=== PATIENT | female | born 1955 | race Caucasian/White ===

== ENCOUNTER → 2016-10-25 | Outpatient (CLI) | payer MEDICARE ==
[2014-11-02 11:05] VITALS: BP 128/72
[~2016-10-25] MED LIST: BUPR100T8 PO; GADOBUTROL 7.5 MMOL/7.5 ML VIAL IV ONE; LORA0.5T PO; THYR60TA PO; TRAZ100T12 PO; VANC125S PO
--- NOTE | 2016-10-25 14:00 | KCIC ---
EXAM: Bone densitometry. HISTORY: Postmenopausal female presents for osteoporosis screening. FINDINGS: BMD: (g/cm2) - AP Spine Total (L1-L4): 1.012 - Total left Hip: 0.785 T-Score: - AP Spine Total (L1-L4): -0.3 - Total left Hip: -1.3 Z-Score: - AP Spine Total (L1-L4): 1.3 - Total left Hip: -0.1 World Health Organization criteria for BMD interpretation classify patients as Normal (T-score at or above -1.0), Osteopenic (T-score between -1.0 and -2.5), or Osteoporotic (T-score at or below -2.5). IMPRESSION: 1. Osteopenia measured at the left hip. 2. Normal bone mineral density measured at the lumbar spine. Electronically signed by: Ramona Herbert (Oct 25, 2016 13:58:58)
--- NOTE | 2016-10-25 15:51 | KCIC ---
PROCEDURE Thoracic and lumbar spine MRI with and without contrast. HISTORY Pain. TECHNIQUE Multiplanar and multi sequence magnetic resonance imaging of the thoracic and lumbar spine was performed prior to and following the administration of 7 cc Gadavist intravenous contrast. COMPARISON None. FINDINGS Thoracic spine: There are chronic mild superior endplate compression deformities with associated Schmorl's nodes at T3, T4, T5, and T7. No acute or subacute fracture is seen. There are multiple hemangiomas. There is no suspicious osseous lesion. There is degenerative endplate remodeling at multiple levels. No spinal cord lesion is seen. No abnormal enhancing lesion is seen. At T4-T5, there is a left paracentral to foraminal disc protrusion superimposed on a disc bulge and endplate remodeling. There is mild facet arthropathy. There is mild left foraminal stenosis. At T7-T8, there is a suspected left paracentral annular tear. There is mild right greater than left facet arthropathy. There is mild bilateral foraminal stenosis. At T8-T9, there is a right paracentral disc protrusion. There is mild facet arthropathy. There is moderate bilateral foraminal stenosis. At T12-L1, there is a diffuse disc bulge and endplate remodeling. There is no stenosis. There are additional minimal disc bulges and endplate remodeling throughout the thoracic spine. There are findings consistent with instrumented anterior spinal fusion at C4 through C7, incompletely evaluated on the current exam. There is a small simple appearing right renal cyst. Lumbar spine: There is minimal retrolisthesis of L1 on L2, L2 on L3, L3 on L4 and L5 on S1. There is degenerative endplate remodeling with disc space narrowing predominately at L4-L5 and L5-S1. There is a T2 hyperintense lesion with increased signal on inversion recovery images within L3, likely a large atypical hemangioma. No suspicious osseous lesion is seen. The conus terminates at L1. 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 No suspicious enhancing lesion is seen. At L1-L2, there is a shallow posterior central disc protrusion and annular tear superimposed on a right posterior lateral predominant disc bulge and endplate remodeling. There is mild facet arthropathy. There is mild right foraminal stenosis. At L2-L3, there is a disc bulge and endplate remodeling. There is mild facet arthropathy. There is no stenosis. At L3-L4, there is a posterior central annular tear superimposed on a disc bulge and endplate remodeling. There is mild facet arthropathy. There is no stenosis. At L4-L5, there is a left foraminal to lateral disc protrusion and osteophyte complex superimposed on a diffuse disc bulge and endplate osteophytosis. There is mild facet arthropathy. There is mild right and [id number]-itimpyia left foraminal stenosis. At L5-S1, there is a left foraminal to extra foraminal disc protrusion and annular tear superimposed on a disc bulge and endplate remodeling. There is mild left greater than right foraminal stenosis. IMPRESSION 1. Multilevel degenerative change within the thoracic and lumbar spine, described in detail above. This results in foraminal stenosis at the aforementioned levels. 2. Mild chronic superior endplate compression deformities with Schmorl's nodes at T3, T4, T5 and T7. No acute fracture is seen. 3. Multiple vertebral hemangiomas, the largest of which is seen within L3 and demonstrates signal characteristics suggesting an atypical hemangioma. No suspicious osseous lesion is seen. 4. Instrumented fusion and degenerative change involving the cervical spine, incompletely evaluated on the current exam. Electronically signed by: Ramona Herbert (Oct 25, 2016 15:50:38)
== END | disposition home or self-care (01) ==
LOC: KCIC DEXA 13:22
PROVIDERS: ATTEND Internal Medicine
DX: M81.8 Other osteoporosis without current pathological fracture (principal); Z78.0 Asymptomatic menopausal state; M85.88 Other specified disorders of bone density and structure, other site; M54.9 Dorsalgia, unspecified; Z86.79 Personal history of other diseases of the circulatory system
CPT/HCPCS: 72157; 72158; 77080; A9585

== ENCOUNTER → 2017-09-23 | Day surgery (SDC) | payer MEDICARE ==
[~2017-09-23] MED LIST changes: -BUPR100T8 PO; -GADOBUTROL 7.5 MMOL/7.5 ML VIAL IV ONE; -LORA0.5T PO; +PROPOFOL 40 ML IV; -THYR60TA PO; -TRAZ100T12 PO; -VANC125S PO
[2017-09-23] MEDS: IV RINGERS,LACTATED 1000ML 1,000 ML IV ×2 (08:48)
== END | disposition home or self-care (01) ==
LOC: SURG 08:07
DX: Z09 Encounter for follow-up examination after completed treatment for conditions other than malignant neoplasm (principal); K64.0 First degree hemorrhoids; E03.9 Hypothyroidism, unspecified; F17.200 Nicotine dependence, unspecified, uncomplicated; Z86.39 Personal history of other endocrine, nutritional and metabolic disease; Z86.69 Personal history of other diseases of the nervous system and sense organs; Z96.651 Presence of right artificial knee joint
CPT/HCPCS: 45378; J2704

== ENCOUNTER → 2017-10-07 | Outpatient (CLI) | payer MEDICARE ==
[2017-10-07] MEDS: SINCALIDE IV (10:48)
[2017-10-07] MEDS: NORMAL SALINE IV (10:48)
== END | disposition home or self-care (01) ==
LOC: US 07:19
DX: K83.8 Other specified diseases of biliary tract (principal)
CPT/HCPCS: 76705; 78226; 96374; 96375; A9537; J2805

== ENCOUNTER → 2017-10-26 | Outpatient (CLI) | payer MEDICARE | END | disposition home or self-care (01) | LOC: KCIC MRI 08:35 | DX: K83.8 Other specified diseases of biliary tract (principal); R10.13 Epigastric pain | CPT/HCPCS: 74181 ==

== ENCOUNTER 2017-11-13 11:18 | Emergency (ER) | payer MEDICARE ==
[2017-11-13 12:21] LABS: BILIRUBIN,URINE NEGATIVE (NEG); CLARITY,URINE CLEAR; GLUCOSE,URINE NEGATIVE (NEG); NITRITE,URINE NEGATIVE (NEG); PROTEIN,URINE NEGATIVE (NEG-TRACE); UROBILINOGEN,URINE 0.2 mg/dL (0.2 mg/dL)
[2017-11-13 12:26] LABS: ADD MAN DIFF? NO
[2017-11-13 12:34] LABS: BACTERIA,URINE FEW /HPF (0-FEW); COLOR,URINE STRAW; RBC,URINE OCC /HPF (0-2); SQUAMOUS EPITHELIAL CELL,UR FEW /LPF; WBC,URINE RARE /HPF (0-4)
[2017-11-13 12:36] LABS: BASO % 0 % (0-3); EOS % 1 % (0-3); HEMATOCRIT 39.6 % (36.0-47.0); HEMOGLOBIN 13.3 g/dL (12.0-15.5); LYMPH # 1.1 x10^3/uL (1.0-4.8); LYMPH % 26 % (24-48); MEAN CORPUSCULAR HEMOGLOBIN 31 pg (25-35); MEAN CORPUSCULAR HGB CONC 34 g/dL (31-37); MEAN CORPUSCULAR VOLUME 93 fL (79-100); MONO # 0.3 x10^3/uL (0.0-1.1); MONO % 7 % (0-9); NEUT # 2.8 x10^3uL (1.8-7.7); NEUT % 66 % (31-73); PLATELET COUNT 222 x10^3/uL (140-400); RED BLOOD COUNT 4.25 x10^6/uL (3.50-5.40); RED CELL DISTRIBUTION WIDTH 12.8 % (11.5-14.5); WHITE BLOOD COUNT 4.3 x10^3/uL (4.0-11.0)
[2017-11-13 12:37] LABS: ANION GAP 11 (6-14); BLOOD UREA NITROGEN 16 mg/dL (7-20); CALCIUM 8.5 mg/dL (8.5-10.1); CARBON DIOXIDE 24 mmol/L (21-32); CHLORIDE 106 mmol/L (98-107); CREATININE 0.7 mg/dL (0.6-1.0); GFR 84.2; GLUCOSE 110 mg/dL (70-99); POTASSIUM 4.1 mmol/L (3.5-5.1); SODIUM 141 mmol/L (136-145)
[2017-11-13 12:43] LABS: ALBUMIN 3.4 g/dL (3.4-5.0); ALK PHOS 80 U/L (46-116); ALT (SGPT) 12 U/L (14-59); AST (SGOT) 12 U/L (15-37); LIPASE 90 U/L (73-393); TOTAL BILIRUBIN 0.4 mg/dL (0.2-1.0); TOTAL PROTEIN 5.8 g/dL (6.4-8.2)
[2017-11-13 12:48] LABS: TROPONINI < 0.017 ng/mL (0.000-0.055)
[2017-11-13 12:52] LABS: DIRECT BILIRUBIN 0.1 mg/dL (0.0-0.2)
== END 2017-11-13 13:52 | disposition home or self-care (01) ==
LOC: ER 11:18
DX: B02.9 Zoster without complications (principal); E03.9 Hypothyroidism, unspecified; M79.7 Fibromyalgia; Z88.6 Allergy status to analgesic agent
CPT/HCPCS: 36415; 80048; 80076; 81001; 83690; 84484; 85025; 99284

== ENCOUNTER → 2018-02-09 | Outpatient (CLI) | payer MEDICARE | END | disposition home or self-care (01) | LOC: KCIC MRI 10:48 | DX: K76.89 Other specified diseases of liver (principal); D18.09 Hemangioma of other sites | CPT/HCPCS: 74181 ==

== ENCOUNTER → 2018-03-08 | Outpatient (CLI) | payer MEDICARE | END | disposition home or self-care (01) | LOC: NM 11:47 | DX: R10.84 Generalized abdominal pain (principal); R11.0 Nausea | CPT/HCPCS: 78264; A9541 ==

== ENCOUNTER → 2018-11-28 | Day surgery (SDC) | payer MEDICARE ==
[~2018-11-28] MED LIST changes: +BUPR100T8 PO; +CBD oil PO; +CHOL500050 PO; +DIPH25CA58 PO; +FLUC200T4 PO; +GABA-585 PO; +HYDR-2761 PO; +HYDR-3164 PO; +IV RINGERS,LACTATED 1000ML 1,000 ML IV SCH; +LEVO50TA5 PO; +LIDOCAINE 2% PF 5 ML VIAL. ONE; +LIOT50TA PO; +LORA0.5T PO; +LORA1TAB PO; +MAGN400C PO; +NALT50TA PO; +ONDA8TAB9 SUBMUC INJ; +PRAS25CA PO; +PROC5TAB14 PO; +PROPOFOL 20 ML IV ONE; -PROPOFOL 40 ML IV; +SENN1TAB70 PO; +THC OIL PO; +THYR60TA PO; +TRAZ-86 PO; +VALA1000 PO; +VANC125S PO; +[UNRECOGNIZED DRUG - CODE] MC; +[UNRECOGNIZED DRUG - OTHER]; +[UNRECOGNIZED DRUG - OTHER]
[2018-11-28 16:22] VITALS: BP 117/56
--- NOTE | 2018-11-30 17:07 | PATHOLOGY ---
[facility] Accession Number: [id number] . 01 Material submitted: . duodenum - DUODENAL BIOPSIES . 01 Clinical history: . Nausea rule out celiac, Whipple's, eosinophilic gastritis . 02 Diagnosis: Duodenal biopsies: - No significant pathologic abnormalities. LBQ/11/30/2018 . 02 Comment: Sections of the duodenal biopsy reveal segments of duodenal and small intestine mucosa. Where best oriented, the mucosal villi show no sprue-like changes or significant inflammatory changes. There is no evidence of an eosinophilic duodenitis. There is no foamy histiocytic infiltrate typical of Whipple's disease. (JPM/db; 11/30/2018) . 02 Electronically signed: . Gerry Cortez MD, Pathologist NPI- [id number] . 01 Gross description: . The specimen is received in formalin, labeled "Tralonzoy, Lorie, duodenal BX" and consists of multiple fragments of phillips tissue measuring 1.4 x 0.7 x 0.3 cm in aggregate which are entirely submitted in A1. (SDY; 11/29/2018) SYU/SYU . 02 Pathologist provided ICD-10: R11.0 . 02 CPT . 082099 Specimen Comment: A courtesy copy of this report has been sent to Specimen Comment: [phone], . Specimen Comment: Report sent to / DR JO Performed at: 01 [facility] [address], [place] [id number] MD Deandre Mckenzie MD Phone: [phone] Performed at: 02 [facility] [address] [place], [place] [id number] MD Gerry Cortez MD Phone: [phone]
== END | disposition home or self-care (01) ==
LOC: SURG 15:25
PROVIDERS: ATTEND Internal Medicine Gastroenterology
DX: K29.50 Unspecified chronic gastritis without bleeding (principal); K31.89 Other diseases of stomach and duodenum; F41.9 Anxiety disorder, unspecified; F32.9 Major depressive disorder, single episode, unspecified; E03.9 Hypothyroidism, unspecified; G47.30 Sleep apnea, unspecified; Z88.6 Allergy status to analgesic agent; M19.90 Unspecified osteoarthritis, unspecified site; M79.7 Fibromyalgia; Z86.010 Personal history of colon polyps; Z86.19 Personal history of other infectious and parasitic diseases; Z98.51 Tubal ligation status; Z96.651 Presence of right artificial knee joint; Z98.890 Other specified postprocedural states; Z83.3 Family history of diabetes mellitus; Z82.49 Family history of ischemic heart disease and other diseases of the circulatory system; Z72.89 Other problems related to lifestyle; Z87.891 Personal history of nicotine dependence; Z79.899 Other long term (current) drug therapy
CPT/HCPCS: 43239; 88305; J2001; J2704

== ENCOUNTER → 2018-12-14 | Outpatient (CLI) | payer MEDICARE ==
[2018-11-28 16:22] VITALS: BP 117/56
[~2018-12-14] MED LIST changes: -IV RINGERS,LACTATED 1000ML 1,000 ML IV SCH; -LIDOCAINE 2% PF 5 ML VIAL. ONE; +MORPHINE SULFATE 10 MG/ML VIAL. IV ONE; +MORPHINE SULFATE 10 MG/ML VIAL. ONE; +MORPHINE SULFATE 4 MG/ML VIAL. IV ONE; -PROPOFOL 20 ML IV ONE
--- NOTE | 2018-12-14 10:03 | RAD ---
Right upper quadrant abdominal ultrasound without comparison for intractable nausea. Technique an findings: Real-time grayscale and color Doppler evaluation of the organs of the right upper quadrant is performed. The pancreatic head is normal in appearance. Pancreas body and tail are obscured by bowel gas. There is a phrygian cap involving the distended gallbladder, with no shadowing stones or sludge, and no pericholecystic fluid or gallbladder wall thickening. No sonographic Rodriguez sign was elicited. There is antegrade flow within the portal vein. The liver measures 16.3 cm and is normal in appearance with no focal parenchymal abnormalities. No intra or extra hepatic biliary ductal dilatation. Common bile duct measures 5 mm. The aorta is nonaneurysmal but atherosclerotic. The IVC is patent. The right kidney measures 10.0 x 4.3 x 4.2 cm and is free of any hydronephrosis. There is a simple appearing 1 cm cyst at the upper pole. No other parenchymal abnormalities. No free fluid is seen. IMPRESSION: 1. Simple right renal cyst. 2. No sonographically discernible acute right upper quadrant abdominal abnormality. Electronically signed by: Regis Chandler MD (12/14/2018 10:00 AM) [id number]
--- NOTE | 2018-12-14 11:32 | RAD ---
Examination: NM HEPATOBILIARY SCAN W PHARM History: nausea x 2 years. pt has hx of lyme disease. no gbef performed. morphine protocol followed. 4 mg morphine given iv. Comparison/Correlation: None Findings: 5 mCi technetium 99m Choletec was intravenously administered for purposes of evaluation the degree. Uptake of radiotracer by liver is normal. Distended common bile duct with central biliary prominence noted. Radiotracer is within small bowel at 20 minutes. After 60 minutes, 40 mg morphine was administered intravenously. The gallbladder is visualized within 15 minutes. Impression: Findings compatible with chronic cholecystitis in the appropriate clinical setting. Gallbladder ejection fraction was not performed. Electronically signed by: Prashanth Zuniga MD (12/14/2018 11:29 AM) [facility]
== END ==
LOC: US 07:53
PROVIDERS: ATTEND Internal Medicine Gastroenterology
DX: N28.1 Cyst of kidney, acquired (principal); I70.0 Atherosclerosis of aorta
CPT/HCPCS: 76705; 78227; A9537; J2270

== ENCOUNTER → 2018-12-20 | Outpatient (CLI) | payer MEDICARE ==
[2018-11-28 16:22] VITALS: BP 117/56
[~2018-12-20] MED LIST changes: +CONTRAST GIVEN. MC PRN; +IOHEXOL 240 MG/ML 50ML VIAL. PO ONE; +IOHEXOL 300 MG/ML 100ML VIAL. IV ONE; -MORPHINE SULFATE 10 MG/ML VIAL. IV ONE; -MORPHINE SULFATE 10 MG/ML VIAL. ONE; -MORPHINE SULFATE 4 MG/ML VIAL. IV ONE
--- NOTE | 2018-12-20 15:32 | KCIC ---
Examination: CT of the abdomen pelvis with oral and IV contrast HISTORY: History of abdominal pain, weight loss, decreased appetite, nausea COMPARISON: None available TECHNIQUE: Axial CT images of the abdomen pelvis were performed with oral and IV contrast. Coronal and sagittal reformats are performed. Exposure: One or more of the following individualized dose reduction techniques were utilized for this examination: 1. Automated exposure control 2. Adjustment of the mA and/or kV according to patient size 3. Use of iterative reconstruction technique FINDINGS: The bibasilar lungs are clear. No evidence of free air identified in the abdomen. The visualized liver, spleen, adrenals grossly appears unremarkable. The gallbladder is mildly distended. The stomach is mildly distended. Mild prominent appearing pylorus. The small bowel is nondilated. Moderate amount of feces and gas noted in the colon. There is mild thickened appearance of the wall of the mid ascending colon. There is some thickened appearance of the distal rectal wall.. The bilateral kidneys enhance symmetrically. Small subcentimeter cystic structures identified in the kidneys the largest measuring 9.5 mm in the left kidney. Mild degenerative changes lumbar spine. IMPRESSION: 1. Mild thickened appearance of the wall of the distal rectum probably due to nondistention or less likely mucosal pathology. There is mild thickened appearance of the mid ascending colon probably due to nondistention. Colonoscopy evaluation can be considered. 2. Bilateral renal cysts. 3. Mild thickened appearance of the pylorus in the distal stomach. Upper GI fluoroscopic exam can be considered. Electronically signed by: Reggie Morris MD (12/20/2018 3:29 PM) [facility]
== END | disposition home or self-care (01) ==
LOC: KCIC CT 12:37
PROVIDERS: ATTEND Internal Medicine Gastroenterology
DX: N28.1 Cyst of kidney, acquired (principal)
CPT/HCPCS: 74177; 82565; Q9966; Q9967

== ENCOUNTER 2019-01-05 09:56 | Day surgery (SDC) | payer MEDICARE ==
[~2019-01-05] VITALS: Ht 167.6 cm; Wt 53.1 kg
[~2019-01-05 09:56] MED LIST changes: +BUPIVAC MPF-EPI 0.5%-1:200000 30 ML VIAL. ONE; -CONTRAST GIVEN. MC PRN; +GLUCAGON,HUMAN RECOMBINANT 1 MG/ML VIAL. ONE; -HYDR-3164 PO; -IOHEXOL 240 MG/ML 50ML VIAL. PO ONE; -IOHEXOL 300 MG/ML 100ML VIAL. IV ONE; +IOHEXOL 300 MG/ML 50 ML VIAL. ONE; -SENN1TAB70 PO; +SURGICEL HEMOSTAT 4X8 EACH. ONE
[2019-01-05 10:45] LABS: BASO % 1 % (0-3); EOS % 1 % (0-3); HEMATOCRIT 45.3 % (36.0-47.0); HEMOGLOBIN 15.3 g/dL (12.0-15.5); LYMPH # 0.9 x10^3/uL (1.0-4.8); LYMPH % 16 % (24-48); MEAN CORPUSCULAR HEMOGLOBIN 33 pg (25-35); MEAN CORPUSCULAR HGB CONC 34 g/dL (31-37); MEAN CORPUSCULAR VOLUME 97 fL (79-100); MONO # 0.3 x10^3/uL (0.0-1.1); MONO % 5 % (0-9); NEUT # 4.2 x10^3uL (1.8-7.7); NEUT % 77 % (31-73); PLATELET COUNT 296 x10^3/uL (140-400); RED BLOOD COUNT 4.66 x10^6/uL (3.50-5.40); WHITE BLOOD COUNT 5.5 x10^3/uL (4.0-11.0)
[2019-01-05] MEDS ORDERED: ROCURONIUM 50 MG/5 ML VIAL. ONE (10:53)
[2019-01-05] MEDS ORDERED: PROPOFOL 20 ML IV ONE (10:53)
[2019-01-05] MEDS ORDERED: LIDOCAINE 2% PF 5 ML VIAL. ONE (10:53)
[2019-01-05] MEDS ORDERED: DEXAMETHASONE SOD PHOS 4 MG/ML VIAL ONE (10:53)
[2019-01-05] MEDS ORDERED: ONDANSETRON PF 4 MG/2 ML VIAL. ONE (10:54)
[2019-01-05] MEDS ORDERED: MIDAZOLAM HCL/PF 2 MG/2 ML VIAL. ONE (10:54)
[2019-01-05] MEDS ORDERED: fentaNYL PF VIAL 100 MCG/2 ML VIAL ONE ×4 (10:54→12:34)
[2019-01-05] MEDS ORDERED: IV RINGERS,LACTATED 1000ML 1,000 ML IV SCH ×2 (11:00→13:00)
[2019-01-05 11:19] LABS: CALCIUM 9.9 mg/dL (8.5-10.1); CREATININE 1.1 mg/dL (0.6-1.0); GFR 49.8; POTASSIUM 3.6 mmol/L (3.5-5.1)
[2019-01-05 11:20] LABS: ALBUMIN 4.5 g/dL (3.4-5.0); TOTAL BILIRUBIN 0.6 mg/dL (0.2-1.0)
[2019-01-05] MEDS ORDERED: ePHEDrine PF IN SALINE 50 MG/10 ML SYRINGE. IV ONE (11:23)
[2019-01-05] MEDS ORDERED: NEOSTIGMINE METHYLSULFATE 5 MG/5 ML SYRINGE. ONE (11:43)
[2019-01-05] MEDS ORDERED: GLYCOPYRROLATE 1 MG/5 ML VIAL. ONE (11:44)
[2019-01-05] MEDS ORDERED: SEVOFLURANE 31 TO 60 MINUTES. IH ONE (12:09)
[2019-01-05] MEDS: fentaNYL PF VIAL 100 MCG/2 ML VIAL IV PRN ×3 (12:24→13:01)
[2019-01-05] MEDS ORDERED: PROCHLORPERAZINE 10 MG/2 ML VIAL. ONE (12:26)
[2019-01-05] MEDS ORDERED: fentaNYL PF VIAL 100 MCG/2 ML VIAL IV PRN (12:30)
[2019-01-05] MEDS ORDERED: HYDROmorphone 2 MG/ML VIAL IV PRN ×2 (12:30)
[2019-01-05] MEDS ORDERED: MORPHINE SULFATE 4 MG/ML VIAL. IV PRN (12:30)
[2019-01-05] MEDS ORDERED: PROCHLORPERAZINE 10 MG/2 ML VIAL. IV PRN ×2 (12:30→12:45)
[2019-01-05] MEDS ORDERED: MORPHINE SULFATE 2 MG/ML VIAL. IV PRN (12:30)
[2019-01-05] MEDS ORDERED: LIDOCAINE 1% PF 2 ML VIAL. ID PRN (12:45)
[2019-01-05] MEDS ORDERED: ONDANSETRON PF 4 MG/2 ML VIAL. IV PRN (12:45)
[2019-01-05] MEDS ORDERED: HYDR-3164 PO (12:55)
[2019-01-05] MEDS ORDERED: SENN1TAB70 PO (12:55)
--- NOTE | 2019-01-05 12:59 | DISCH ---
DISCHARGE INSTRUCTIONS Condition on Discharge Condition on Discharge: Stable Activity After Discharge Activity Instructions for Disc: Activity as tolerated, Avoid exertion Driving Instructions after Dis: Do not drive (2-3 days) Diet after Discharge Diet after Discharge: Regular Wound Incision Care Wound/Incision Care: Ice to area for comfort Other wound/incision instructi: december showtuesday Follow-Up Follow Up With: Charan next week ERICH JACK MD January 05, 2019 12:59
--- NOTE | 2019-01-05 13:08 | PDOC ---
BRIEF OPERATIVE NOTE Date: January 05, 2019 Pre-Op Diagnosis biliary dyskinesia Post-Op Diagnosis same Procedure Performed l/s cholecystectomy Surgeon Charan Sr. Social Media & Mobile Manager Griselda KENNEDYA Anesthesia Type: General Blood Loss 10cc IV Fluid 800cc Specimens Obtained GB Findings supple GB, distended stomach Complications none Operative Note Wk # [id number] ERICH JACK MD January 05, 2019 13:08
[2019-01-05] MEDS ORDERED: HYDROcodone/APAP 5/325MG 1 TAB TABLET PO ONE (13:15)
[2019-01-05 14:14] VITALS: BP 101/51
--- NOTE | 2019-01-05 15:37 | OP ---
DATE OF SURGERY: 01/05/2019 PREOPERATIVE DIAGNOSIS: Biliary dyskinesia. POSTOPERATIVE DIAGNOSIS: Biliary dyskinesia. PROCEDURE: Laparoscopic cholecystectomy. SURGEON: Erich Jack MD PIGMENT FURNACE TENDER: WILMA De Anda ANESTHESIA: General endotracheal. ESTIMATED BLOOD LOSS: 10. IV FLUID: 800. INDICATIONS: The patient is a 63-year-old with persistent nausea, who has had an extensive GI workup. She is brought for cholecystectomy in hopes of improving her symptoms. OPERATIVE FINDINGS: The liver was smooth and sharp. The gallbladder was supple. The stomach was quite distended with air. Visual inspection of the remainder of the abdomen failed to reveal obvious abnormalities. DESCRIPTION OF PROCEDURE: The patient was brought to the operating suite, given a general endotracheal anesthetic and the abdomen prepped and draped in usual sterile fashion. An infraumbilical incision was infiltrated with local anesthetic, incised and a 5 mm Visiport used to safely gain access into the abdominal cavity taking care to avoid injury to abdominal contents. Pneumoperitoneum established. Camera inserted. Inspection carried out with results as noted above. With the table in reverse Trendelenburg rolled to the left, the epigastric and midclavicular ports were placed under direct vision. The lateral port location was used for an "alligator" grasper and the gallbladder was retracted superolaterally. A few filmy omental adhesions were carefully taken off the inferior surface of the gallbladder with cautery dissection avoiding injury to the adjacent bowel. The cystic duct and cystic artery were identified. The duct was clipped on the gallbladder side. I was unable to cannulate the duct for cholangiograms due to its small caliber. As such, it was clipped x 3 and divided taking care to avoid injury or compromise of the common duct. The cystic artery was clipped x 2 and divided and the gallbladder freed from the bed with cautery dissection and placed in the EndoCatch bag. Good hemostasis and no evidence of bile leak was seen in the gallbladder fossa. Table returned to the level. Gallbladder delivered through the epigastric incision. Epigastric incision closed with interrupted 0 Vicryl suture. Intra-abdominal pressure decreased to 6 cm of water. No bleeding from the epigastric closure, gallbladder fossa, or midclavicular or lateral port locations after their removal. Abdomen decompressed, camera slowly removed, no bleeding seen. Skin incisions closed with subcuticular 4-0 Monocryl. Steri-Strips and sterile dressings applied. The patient was awakened from her anesthetic and taken to the recovery room in satisfactory condition. ERICH JACK MD DR: Juventino JOB#: [id number] / [id number]
--- NOTE | 2019-01-09 09:46 | PATHOLOGY ---
[facility] Accession Number: [id number] . 01 Material submitted: . gallbladder - GALLBLADDER AND CONTENTS . 01 Clinical history: . Abdominal pain, N and V . 02 Diagnosis: Gallbladder, cholecystectomy: - Chronic cholecystitis, mild. - No gallstones present. - Adjacent lymph node with lipogranuloma. (SKM:[facility] 01/08/2019) QTP/01/08/2019 . 02 Electronically signed: . Jorge Lamas MD, Pathologist NPI- [id number] . 01 Gross description: . The specimen is received in formalin, labeled "Lorie Zaman, gallbladder". Received is an intact gallbladder measuring 8.3 x 3.0 x 2.7 cm in greatest dimensions displaying a pink-dang serosal surface. Opening the specimen reveals a velvety, bile-stained mucosa with a gallbladder wall thickness of 0.1 cm. Calculi are not present, and no masses or lesions are noted grossly. A possible lymph node is located in the proximal margin measuring 0.7 cm in maximum dimensions. Tectonophysicist sections, to include the proximal margin, are submitted in cassette A1, to include the aforementioned lymph node. (CAA; 01/05/2019) QAC/QAC . 02 Pathologist provided ICD-10: K81.1 . 02 CPT . 453532 Specimen Comment: A courtesy copy of this report has been sent to Specimen Comment: [phone], . Specimen Comment: Report sent to / DR JO Specimen Comment: A duplicate report has been generated due to demographic updates. Performed at: [address], [place], [place] [id number] MD Deandre Mckenzie MD Phone: [phone] Performed at: 02 [facility] [address] [place], [place] [id number] MD Gerry Cortez MD Phone: [phone]
== END 2019-01-05 14:38 | disposition home or self-care (01) ==
LOC: SURG 09:56
PROVIDERS: ATTEND Surgery
DX: K81.1 Chronic cholecystitis (principal); L92.8 Other granulomatous disorders of the skin and subcutaneous tissue; F32.9 Major depressive disorder, single episode, unspecified; F41.9 Anxiety disorder, unspecified; E03.9 Hypothyroidism, unspecified; Z87.39 Personal history of other diseases of the musculoskeletal system and connective tissue; Z98.890 Other specified postprocedural states; Z96.653 Presence of artificial knee joint, bilateral; Z98.51 Tubal ligation status; Z72.89 Other problems related to lifestyle; Z87.891 Personal history of nicotine dependence
CPT/HCPCS: 36415; 47562; 80048; 82040; 82247; 85025; 88304; A7015; J0171; J0690; J0780; J2001; J2405; J2704; J2710; J3010; J3490; J7030; Q9967; J1100; J1610; J2250

== ENCOUNTER → 2019-02-02 | Outpatient (CLI) | payer MEDICARE ==
[2019-01-05 14:14] VITALS: BP 101/51
[~2019-02-02] MED LIST changes: -BUPIVAC MPF-EPI 0.5%-1:200000 30 ML VIAL. ONE; -GLUCAGON,HUMAN RECOMBINANT 1 MG/ML VIAL. ONE; +HYDR-3164 PO; -IOHEXOL 300 MG/ML 50 ML VIAL. ONE; +SENN1TAB70 PO; -SURGICEL HEMOSTAT 4X8 EACH. ONE
--- NOTE | 2019-02-02 16:41 | KCIC ---
CHEST PA LATERAL History: Weight loss, former smoker COMPARISON: None FINDINGS: The heart size is not enlarged. Surgical fusion plate at the lower cervical spine. Lungs appear clear. No pleural effusion or pneumothorax. Bones appear intact. IMPRESSION: No acute radiographic findings. Electronically signed by: Venancio Magallanes MD (02/02/2019 4:38 PM) [facility]
== END | disposition home or self-care (01) ==
LOC: KCIC 14:31
PROVIDERS: ATTEND Internal Medicine Gastroenterology
DX: R63.4 Abnormal weight loss (principal); Z87.891 Personal history of nicotine dependence
CPT/HCPCS: 71046

== ENCOUNTER → 2019-11-15 | Outpatient (CLI) | payer MEDICARE ==
[2019-05-09 16:20] VITALS: BP 101/61
[~2019-11-15] MED LIST changes: +CEPH500T PO; -LIOT50TA PO; +LIOT50TA3 PO; +ONDA4TAB7 PO; +TRAZ-123 PO; -TRAZ-86 PO; -VALA1000 PO; +VALA10008 PO
--- NOTE | 2019-11-15 13:31 | KCIC ---
Right foot 3 views: Reason for examination: Closed fracture at the base of the fifth metatarsal bone. Evaluate healing from 7 weeks ago. No previous examinations for comparison. There is a transverse fracture present at the base of the fifth metatarsal bone which shows no periosteal reaction or callus formation but there is lucency at the fracture site consistent with some osteopenia. No new sites of fracture or dislocation are seen. Joint spaces are maintained. Note is made of an accessory ossification center medial to the talonavicular joint. IMPRESSION: Transverse at the base of the fifth metatarsal bone without significant callus or periosteal new bone formation. Electronically signed by: Lucy Olivo MD (11/15/2019 1:28 PM) [id number]
== END | disposition home or self-care (01) ==
LOC: KCIC 11:43
PROVIDERS: ATTEND Internal Medicine Geriatric Medicine
DX: S92.351A Displaced fracture of fifth metatarsal bone, right foot, initial encounter for closed fracture (principal); X58.XXXA Exposure to other specified factors, initial encounter; Y93.89 Activity, other specified; Y92.89 Other specified places as the place of occurrence of the external cause; Y99.8 Other external cause status
CPT/HCPCS: 73630